=== PATIENT | female | born 1985 | race Caucasian/White ===

== ENCOUNTER 2016-05-17 00:20 | Emergency (ER) | payer MEDICAID ==
[2016-05-17 01:49] VITALS: BP 149/89
== END 2016-05-17 01:49 | disposition home or self-care (01) ==
LOC: ED 00:20
DX: S93.491A Sprain of other ligament of right ankle, initial encounter (principal); X58.XXXA Exposure to other specified factors, initial encounter; Y93.64 Activity, baseball; Y92.89 Other specified places as the place of occurrence of the external cause; Y99.8 Other external cause status